=== PATIENT | male | born 1960 | race Caucasian/White ===

== ENCOUNTER 2018-08-20 06:46 | Emergency (ER) | payer MEDICAID ==
--- NOTE | 2018-08-20 08:15 | EDPHY ---
HPI/HX/ROS/PE/MDM Narrative: CHIEF COMPLAINT: Left ankle pain HPI: The patient is a 58-year-old healthy male with no significant past medical history. Approximately 2 and half weeks ago, he was participating in a cyclo-cross race and at one point he struck his distal left fibula area on a concrete barrier. He was able to finish the race. Since that time he is having continued pain in this region with occasional swelling. He is able to stand all day at work with some pain but no disability. He has taken some ibuprofen with relief. He denies other swelling, chest pain or shortness of breath. REVIEW OF SYSTEMS: A comprehensive 10 system review of systems is otherwise negative aside from elements mentioned in the history of present illness. PMH: None significant. SOCIAL HISTORY: Denies alcohol or drug abuse. PHYSICAL EXAM: General:Patient is alert, in no acute distress. Skin: Normal color. No rash. Warm and dry. Extremities: Left lower extremity: Normal appearance. Full range of motion. No ecchymosis or swelling. There is point tenderness to the left lateral distal fibula without crepitus. This reproduces patient's pain exactly. There is no tenderness or swelling to the calf or other soft tissues. There is no tenderness to deep palpation of the entire calcaneus. Neuro: Oriented x3. Normal motor function. Normal sensory function. ED Course: X-ray of the left ankle was interpreted by myself is negative. Of note, the radiologist mentions possible calcaneus fracture, but this is not compatible with the patient's exam. I had extensive discussion with the patient regarding possible workup. I explained that this most likely represents a bone contusion, and an MRI would be necessary to confirm this as well as exclude other pathology. I offered to perform this here but the patient has elected to go with the option of orthopedic referral and likely outpatient MRI. We will place him in a splint to see if this eases his pain. I see no evidence of DVT or other life- threatening pathology. He has declined my offer of pain medication. - Data Points Imaging Results: Imaging Impressions Ankle X-Ray 08/20/18 06:51 Impression: 1. No posttraumatic abnormality identified. 2. Atherosclerosis. General Time Seen by Provider: 08/20/18 07:14 Initial Vital Signs: Initial Vital Signs Temperature (C) 36.4 C 08/20/18 06:47 Heart Rate 54 L 08/20/18 06:47 Respiratory Rate 16 08/20/18 06:47 Blood Pressure 121/77 H 08/20/18 06:47 O2 Sat (%) 97 08/20/18 06:47 O2 Delivery Mode Room Air Allergies/Adverse Reactions: No Known Allergies Allergy (Verified 08/20/18 06:50) Home Medications: Medication Instructions Recorded Sertraline HCl [Zoloft 50mg (*)] 200 mg PO DAILY 06/17/16 Departure - Departure Disposition: Home, Routine, Self-Care Clinical Impression: Contusion of ankle, left Condition: Good Instructions: Ankle Stirrup Splint (ED) Additional Instructions: Follow-up with Orthopedic surgery within the next 72 hr. Continue icing and resting her ankle. Return to the emergency department for fever, worsening pain or other concerns. Referrals: Amaya Blount PA [Primary Care Provider] - As per Instructions Horace Fuentes MD [Medical Doctor] - As per Instructions Report Scribed for: Darrell Sal Report Scribed by: Hollie Hayden Date of Report: 08/20/18 Time of Report: 08:03 Physician Review and Approval Statement: Portions of this note were transcribed by an ED scribe. I personally performed the history, physical exam, and medical decision making; and confirm the accuracy of the information in the transcribed note.
[2018-08-20 08:40] VITALS: BP 124/78
== END 2018-08-20 08:38 | disposition home or self-care (01) ==
DX: S90.02XA Contusion of left ankle, initial encounter (principal); V86.56XA Driver of dirt bike or motor/cross bike injured in nontraffic accident, initial encounter; Y92.838 Other recreation area as the place of occurrence of the external cause; Y99.8 Other external cause status
CPT/HCPCS: L4350

== ENCOUNTER → 2018-09-21 | Outpatient (CLI) | payer MEDICAID | LOC: FIMAGING 16:10 | PROVIDERS: ATTEND Podiatrist Foot & Ankle Surgery | DX: S82.425D Nondisplaced transverse fracture of shaft of left fibula, subsequent encounter for closed fracture with routine healing (principal); S93.422D Sprain of deltoid ligament of left ankle, subsequent encounter; S86.312D Strain of muscle(s) and tendon(s) of peroneal muscle group at lower leg level, left leg, subsequent encounter; M72.2 Plantar fascial fibromatosis ==

== ENCOUNTER 2018-11-07 09:27 | Day surgery (SDC) | payer MEDICAID ==
--- NOTE | 2018-11-07 09:21 | PDANEPAE ---
ANE Past Medical History - Cardiovascular History Hx Hypertension: No Hx Arrhythmias: No Hx Chest Pain: No Hx Coronary Artery / Peripheral Vascular Disease: No Hx CHF / Valvular Disease: No Hx Palpitations: No Cardiovascular History Comment: ventricular septal defect, last checked 10 yrs ago and was told there wasn't anything that needed to be done - Pulmonary History Hx COPD: No Hx Asthma/Reactive Airway Disease: No Hx Recent Upper Respiratory Infection: No Hx Oxygen in Use at Home: No Hx Sleep Apnea: No Sleep Apnea Screening Result - Last Documented: Negative - Neurologic History Hx Cerebrovascular Accident: No Hx Seizures: No Hx Dementia: No - Endocrine History Hx Diabetes: No - Renal History Hx Renal Disorders: No - Liver History Hx Hepatic Disorders: No - Neurological & Psychiatric Hx Hx Neurological and Psychiatric Disorders: Yes Neurological / Psychiatric History Comment: mild depression - Cancer History Hx Cancer: No - Congenital Disorder History Hx Congenital Disorders: No - GI History Hx Gastrointestinal Disorders: No - Other Health History Other Health History: wears reading glasses - Chronic Pain History Chronic Pain: Yes (left leg) - Surgical History Prior Surgeries: cataracts- bilaterally. splenectomy at 5 yo ANE Review of Systems Review of Systems: - Exercise capacity Exercise capacity: >=4 METS METS (RN): 6 METS ANE Patient History - Allergies Allergies/Adverse Reactions: No Known Allergies Allergy (Verified 11/02/18 12:38) - Home Medications Home medications: home medication list seen and reviewed Home Medications: Sertraline HCl [Zoloft 50mg (*)] 06/17/16 [Last Taken 11/06/18] Herbals/Supplements -Info Only 11/02/18 [Last Taken 11/02/18] - NPO status NPO Status: no food or drink >8 hours - Anes Hx Anes Hx: no prior problems - Smoking Hx Smoking Status: Never smoked - Family Anes Hx Family Hx Anesthesia Complications: none ANE Labs/Vital Signs - Vital Signs Vital Signs: reviewed preoperatively; see RN documention for details Height: 187.96 cm Weight: 82.554 kg ANE Physical Exam - Airway Neck exam: FROM Mallampati Score: Class 2 Mouth exam: normal dental/mouth exam - Pulmonary Pulmonary: no respiratory distress - Cardiovascular Cardiovascular: regular rate and rhythym - ASA Status ASA Status: II ANE Anesthesia Plan Anesthesia Plan: GA w LMA
[~2018-11-07 09:27] MED LIST: MIDAZOLAM 2 MG/2 ML VIAL IVP ONE
--- NOTE | 2018-11-07 09:33 | PDHPUP ---
History & Physical Update H&P update statement: This history and physical update is based on an assessment of the patient which was completed after admission or registration (within 24 hours), but prior to the surgery/procedure. H&P update: H&P reviewed & patient examined
[2018-11-07] MEDS ORDERED: ceFAZolin 2 GM/DEXTROSE 100 ML IV ONE (09:53)
[2018-11-07] MEDS ORDERED: LR 1,000 ML IV ONE (09:58)
[2018-11-07] MEDS ORDERED: BUPIVACAINE 0.5% 30 ML SDV ONE (10:23)
[2018-11-07] MEDS ORDERED: LIDOCAINE 2% 5 ML SDV ONE (10:23)
[2018-11-07] MEDS ORDERED: fentaNYL 100 MCG/2 ML INJ ONE (11:08)
[2018-11-07] MEDS ORDERED: PROPOFOL 200 MG/20 ML VIAL ONE (11:08)
[2018-11-07] MEDS ORDERED: DEXAMETHASONE 4 MG/ML VIAL ONE (11:11)
[2018-11-07] MEDS ORDERED: ONDANSETRON 4 MG/2 ML VIAL ONE (12:04)
[2018-11-07] MEDS ORDERED: ALBUTEROL 3 ML DEYVIAL IH PRN (12:28)
[2018-11-07] MEDS ORDERED: PROMETHAZINE HCL 25 MG/ML INJ IVP PRN (12:28)
[2018-11-07] MEDS ORDERED: DIAZEPAM 5 MG/ML 1 ML SYR IVP PRN (12:28)
[2018-11-07] MEDS ORDERED: DEXAMETHASONE 4 MG/ML VIAL IVP PRN (12:28)
[2018-11-07] MEDS ORDERED: ONDANSETRON 4 MG/2 ML VIAL IVP PRN (12:28)
[2018-11-07] MEDS ORDERED: oxyCODONE IR 5 MG TAB PO PRN (12:28)
[2018-11-07] MEDS ORDERED: fentaNYL 100 MCG/2 ML INJ IVP PRN (12:28)
[2018-11-07] MEDS ORDERED: LR 500 ML IV PRN (12:28)
[2018-11-07] MEDS ORDERED: LABETALOL HCL 5 MG/ML 20 ML MDV IVP PRN (12:28)
[2018-11-07] MEDS ORDERED: HYDROmorphONE/DILAUDID 2 MG/ML INJ IVP PRN (12:28)
[2018-11-07] MEDS ORDERED: METOCLOPRAMIDE 10 MG/2 ML VIAL IVP PRN (12:28)
[2018-11-07] MEDS ORDERED: MEPERIDINE 25 MG/0.5 ML AMP IVP PRN (12:28)
[2018-11-07] MEDS ORDERED: HYDROCODONE/APAP 5/325 TAB PO PRN (12:28)
[2018-11-07] MEDS ORDERED: ACETAMINOPHEN 500 MG TAB PO PRN (12:28)
[2018-11-07] MEDS ORDERED: NALOXONE HCL 0.4 MG/ML INJ IVP PRN (12:28)
--- NOTE | 2018-11-07 12:28 | POSTANESTH ---
Post Anesthetic Evaluation Cardiovascular Status: Normal, Stable Respiratory Status: Normal, Stable Level of Consciousness/Mental Status: Can Participate in Eval Pain Control: Adequate, Prn Tx Ordered Nausea/Vomiting Control: Adequate, Prn Tx Ordered Complications Possibly Related to Anesthesia: None Noted
[2018-11-07] MEDS ORDERED: KETOROLAC 30 MG/1 ML SDV ONE (12:36)
--- NOTE | 2018-11-07 13:04 | POSTOPPROG ---
Post Op Note Date of Operation: 11/07/18 Surgeon: Derek Bernal Case Management Associate: none Anesthesiologist: MD Rubina Anesthesia: LMA Pre-op Diagnosis: rupture of syndesmosis, left ankle; fibular fracture Post-op Diagnosis: same Indication: continued pain Procedure: ORIF fibula; repair syndesmosis Inf/Abcess present in the surg proc area at time of surgery?: No Depth: Deep Incisional (Fascial) EBL: Minimal Complications: none
[2018-11-07] MEDS ORDERED: oxyCODONE IR 5 MG TAB ONE (13:16)
[2018-11-07 14:15] VITALS: BP 130/86
--- NOTE | 2018-11-08 08:36 | GOP ---
DATE OF OPERATION: 11/07/2018 SURGEON: Derek Bernal DPM TABLE CUT OFF SAW OPERATOR: None. ANESTHESIA: General. PREOPERATIVE DIAGNOSIS: 1. Transverse fibular fracture, left lower extremity. 2. A syndesmotic rupture, left ankle. POSTOPERATIVE DIAGNOSIS: 1. Transverse fibular fracture, left lower extremity. 2. A syndesmotic rupture, left ankle. PROCEDURE PERFORMED: 1. Left fibula ORIF (open reduction and internal fixation). 2. Repair of the ankle syndesmosis, left. FINDINGS: SPECIMENS: None. ESTIMATED BLOOD LOSS: Scant. INDICATIONS: The patient sustained a cyclocross injury 10 weeks prior to the surgery and was placed in a walking boot. The fibular fracture was healing relatively well, but the patient was unable to g et out of the boot or make any lateral movements without significant pain. An MRI showed a significa nt disruption of the syndesmotic ligament of the distal ankle. It was offered to stabilize the synde smosis as well as the fibular fracture to repair this painful ligamentous disruption. The patient un derstands the risks, benefits, and alternatives to the proposed procedure and wishes to proceed. DESCRIPTION OF PROCEDURE: Under mild sedation, the patient was brought in to the operating room and placed on the operating table in a supine position. An ipsilateral hip bump was placed under the pat ient's left hip after induction of general anesthesia, and infiltration of 2 g of IV Ancef. A nonste rile pneumatic thigh tourniquet was placed about the patient's left thigh. An Esmarch bandage was ut ilized to exsanguinate the patient's left lower extremity, and the tourniquet was inflated to 250 mmH g. Following application of the left pneumatic thigh tourniquet, a nonsterile regional block was rajeev ifeoma with 20 cc of 0.5% Marcaine plain. The foot was then scrubbed, prepped, and draped in usual asep tic manner. An Esmarch bandage was utilized to exsanguinate the patient's left lower extremity, and the tourniquet was inflated to 250 mmHg. Attention was then directed to the area overlying the lateral aspect of the patient's left distal fib edita where an 11 cm linear longitudinal incision was made in line with the axis of the fibula. The in cision was deepened via sharp and blunt dissection, care being taken to identify and retract all arnoldo l neuro and vascular structures. All bleeders were ligated and cauterized as necessary. The periost eum was incised in line with the skin incision and reflected anteriorly and posteriorly thus exposing the fibula. The fibular fracture was immediately identified to be hypertrophic in nature. To fresh en the fracture site and facilitate further healing after application of the internal fixation, a K-w charles was used to freshen the fracture ends. At this time, a 6-hole locking titanium recon fibular rajeev te was placed on the lateral aspect. This was bent to contour at the patient's fibula. Two nonlocki ng screws were placed above the fracture line. One was placed below the fracture line. These all me asured 14 mm x 3.5 mm, and then 2 titanium knotless TightRopes from [employer] were placed from lateral to medial via bone tunnels. The distal drill hole was roughly 1.5 cm superior to and parallel to the ankle joint, and a second TightRope was utilized which was roughly 1.5 cm above the first tightrope. These were secured in place, and interoperative fluoroscopy was utilized to show final fixation. A ny redundant sutures were cut and removed from the TightRopes. The wound was flushed with copious am ounts of sterile normal saline, and the wounds were closed in layers. The periosteal structures were closed with a 2-0 Vicryl. The subcutaneous tissues were closed with a 3-0 Monocryl, and the skin wa s closed with a running baseball-type suture of 3-0 nylon. The wound was dressed with Xeroform and a sterile compressive dressing consisting of 4 x 4's and Gallo. The patient was placed in a posterior splint to hold the patient's ankle at 90 degrees as well as to allow for any postoperative edema. T he tourniquet was dropped, and a prompt hyperemic response was noted to all digits of the left lower extremity. The patient tolerated the procedure and anesthesia well. He was transferred to the [facility] room with vital signs stable and vascular status intact to all digits of the left foot. Followin g a period of postoperative monitoring, the patient will be discharged home with the following writte n and oral postoperative instructions: 1. Keep dressing clean, dry, and intact. 2. Ice and elevate as instructed. 3. Use caution while taking pain medication. 4. The patient will be nonweightbearing for 2 weeks. All followup questions and concerns should be directed toward [facility] Depa rtment at [phone]. HEMOSTASIS: Pneumatic thigh tourniquet at 250 mmHg for 57 minutes. MATERIALS: A 6-hole locking titanium recon fibular plate held in place with 14 mm x 3.5 mm cortex sc rews x3. Also holding the plate were 2 titanium knotless TightRopes, all from [employer]. It should al so be noted that a 2 cm x 12 cm AmnioFix allograft from [employer] was used. INJECTABLES: 20 cc of 0.5% Marcaine plain. COMPLICATIONS: None. /[id number]/MODL
== END 2018-11-07 14:25 | disposition home or self-care (01) ==
LOC: FSGY 09:27
PROVIDERS: ATTEND Podiatrist Foot & Ankle Surgery
DX: S82.425D Nondisplaced transverse fracture of shaft of left fibula, subsequent encounter for closed fracture with routine healing (principal); S93.432D Sprain of tibiofibular ligament of left ankle, subsequent encounter; V18.2XXD Unspecified pedal cyclist injured in noncollision transport accident in nontraffic accident, subsequent encounter; Q21.0 Ventricular septal defect
CPT/HCPCS: C1713; C9399; J0690; J1100; J1885; J2250; J2405; J2704; J3010

== ENCOUNTER → 2018-11-30 | Outpatient (CLI) | payer MEDICAID | LOC: BMCIMAGING 13:12 | PROVIDERS: ATTEND Podiatrist Foot & Ankle Surgery | DX: Z47.89 Encounter for other orthopedic aftercare (principal); S82.425D Nondisplaced transverse fracture of shaft of left fibula, subsequent encounter for closed fracture with routine healing ==

== ENCOUNTER → 2019-01-16 | Outpatient (CLI) | payer MEDICAID | LOC: BMCIMAGING 13:54 | PROVIDERS: ATTEND Podiatrist Foot & Ankle Surgery | DX: S82.832D Other fracture of upper and lower end of left fibula, subsequent encounter for closed fracture with routine healing (principal) ==